=== PATIENT | male | born 1960 | race Two or more races ===

== ENCOUNTER 2024-05-15 12:50 | Inpatient (IN) | payer OTHER ==
[~2024-05-15] VITALS: Ht 165.1 cm; Wt 100.0 kg
[2024-05-15] MEDS ORDERED: METO50 PO (13:01)
[2024-05-15] MEDS ORDERED: ATOR40TA71 PO (13:01)
[2024-05-15] MEDS ORDERED: POTA99TA17 PO (13:01)
[2024-05-15] MEDS ORDERED: ASPI-1450 PO (13:01)
[2024-05-15] MEDS ORDERED: HYDR25TA84 PO (13:01)
[2024-05-15 13:51] LABS: BASOPHILS % (AUTO) 0.4 % (0.0-2.0); EOSINOPHILS % (AUTO) 0.3 % (1.0-6.0); LYMPHOCYTES # (AUTO) 2.5 K/uL (1.0-4.8); LYMPHOCYTES % (AUTO) 25.8 % (22.0-44.0); MEAN CORPUSCULAR HEMOGLOBIN 32.7 pg (26.0-34.0); MEAN CORPUSCULAR HGB CONC 32.8 G/dL (31.0-37.0); MEAN CORPUSCULAR VOLUME 100 fL (80-100); MONOCYTES # (AUTO) 0.7 K/uL (0.1-1.0); MONOCYTES % (AUTO) 6.8 % (2.0-9.0); NEUTROPHILS # (AUTO) 6.6 K/uL (1.8-7.7); NEUTROPHILS % (AUTO) 66.7 % (40.0-70.0); PLATELET COUNT (AUTO) 83 K/uL (150-450); RED BLOOD CELL COUNT(AUTO) 5.91 MIL/uL (4.50-5.90); RED CELL DISTRIBUTION WIDTH 14.5 % (11.5-14.5); WHITE BLOOD COUNT (AUTO) 9.9 K/uL (4.5-11.0)
[2024-05-15 14:05] LABS: CALCIUM, TOTAL 8.5 mg/dL (8.8-10.5); CREATININE 1.67 mg/dL (0.60-1.30); POTASSIUM 4.1 mmol/L (3.5-5.1)
[2024-05-15 14:23] LABS: TROPONIN I-HIGH SENSITIVITY 85 ng/L (<76)
[2024-05-15 14:40] LABS: MAGNESIUM 1.9 mg/dL (1.80-2.40)
[2024-05-15] MEDS: FUROSEMIDE 40 MG/4 ML VIAL IVP ONE (14:43)
[2024-05-15] MEDS: METOPROLOL TARTRATE 50 MG TABLET PO ONE (14:43)
[2024-05-15] MEDS: METOPROLOL TARTRATE 5 MG/5 ML VIAL IVP ONE ×2 (14:43→16:40)
[2024-05-15 14:46] LABS: HEMATOCRIT 58.9 % (41-53); HEMOGLOBIN 19.3 g/dL (13.5-17.5)
[2024-05-15 16:18] LABS: COVID AG,FIA SOURCE NASAL SWAB
[2024-05-15] MEDS: MAGNESIUM SULFATE 1 GM in DEXTROSE 5%-WATER 50 ML IV ONE (16:40)
[2024-05-15 16:50] LABS: INFLUENZA TYPE A NEGATIVE FOR TYPE A (NEGATIVE); INFLUENZA TYPE B NEGATIVE FOR TYPE B (NEGATIVE); SARS-COV2 (COVID) ANTIGEN,FIA Negative (Negative)
[2024-05-15 16:50] LABS: TROPONIN I-HIGH SENSITIVITY 104 ng/L (<76)
[2024-05-15] MEDS ORDERED: MORPHINE SULFATE 2 MG/ML SYRINGE IVP PRN (18:30)
[2024-05-15] MEDS ORDERED: ACETAMINOPHEN 325 MG TABLET PO PRN (18:30)
[2024-05-15] MEDS ORDERED: MAGNESIUM HYDROXIDE SUSPENSION 30 ML UDCUP PO PRN (18:30)
[2024-05-15] MEDS ORDERED: HYDROCODONE/ACETAMINOPHEN 5-325 MG TABLET PO PRN (18:30)
[2024-05-15] MEDS ORDERED: ONDANSETRON HCL 4 MG/2 ML VIAL IVP PRN (18:30)
[2024-05-15] MEDS ORDERED: BISACODYL 10 MG RECTAL RECTAL SUPPOSITORY PR PRN (18:30)
[2024-05-15] MEDS ORDERED: ZOLPIDEM TARTRATE 5 MG TABLET PO PRN (18:30)
[2024-05-15 19:30] LABS: TROPONIN I-HIGH SENSITIVITY 79 ng/L (<76)
[2024-05-15] MEDS: DOCUSATE SODIUM 100 MG CAPSULE PO SCH (21:00)
[2024-05-15] MEDS: FUROSEMIDE 20 MG/2 ML VIAL IVP SCH (21:38)
[2024-05-15] MEDS: METOPROLOL TARTRATE 50 MG TABLET PO SCH (21:38)
[2024-05-16] VITALS: BP 157/101; PULSE 81; RESP 18; TEMP 97.9; O2SAT 95
[2024-05-16] MEDS: HEPARIN SODIUM,PORCINE 5,000 UNITS/ML VIAL SQ SCH
[2024-05-16 04:00] VITALS: BP 147/104; PULSE 84; RESP 17; TEMP 98.1; O2SAT 98
[2024-05-16 06:46] LABS: BASOPHILS % (AUTO) 4.4 % (0.0-2.0); EOSINOPHILS % (AUTO) 0.7 % (1.0-6.0); HEMATOCRIT 54.4 % (41-53); HEMOGLOBIN 18.3 g/dL (13.5-17.5); LYMPHOCYTES # (AUTO) 1.4 K/uL (1.0-4.8); LYMPHOCYTES % (AUTO) 18.6 % (22.0-44.0); MEAN CORPUSCULAR HEMOGLOBIN 33.7 pg (26.0-34.0); MEAN CORPUSCULAR HGB CONC 33.7 G/dL (31.0-37.0); MEAN CORPUSCULAR VOLUME 100 fL (80-100); MONOCYTES # (AUTO) 0.6 K/uL (0.1-1.0); MONOCYTES % (AUTO) 7.7 % (2.0-9.0); NEUTROPHILS # (AUTO) 5.1 K/uL (1.8-7.7); NEUTROPHILS % (AUTO) 68.6 % (40.0-70.0); PLATELET COUNT (AUTO) 68 K/uL (150-450); RED BLOOD CELL COUNT(AUTO) 5.44 MIL/uL (4.50-5.90); RED CELL DISTRIBUTION WIDTH 14.1 % (11.5-14.5); WHITE BLOOD COUNT (AUTO) 7.4 K/uL (4.5-11.0)
[2024-05-16 06:50] LABS: CALCIUM, TOTAL 8.1 mg/dL (8.8-10.5); CREATININE 1.41 mg/dL (0.60-1.30); POTASSIUM 3.5 mmol/L (3.5-5.1)
[2024-05-16] MEDS: ATORVASTATIN CALCIUM 40 MG TABLET PO SCH (08:09)
[2024-05-16] MEDS: PANTOPRAZOLE SODIUM 40 MG DR TABLET PO SCH (08:09)
[2024-05-16] MEDS: ASPIRIN 81 MG CHEWABLE TABLET PO SCH (08:16)
[2024-05-16 12:17] VITALS: BP 139/89; PULSE 86; RESP 18; TEMP 97.9; O2SAT 97
[2024-05-16 15:20] VITALS: BP 150/90; RESP 18; TEMP 98; O2SAT 98
== END 2024-05-16 16:14 | disposition short-term general hospital (02) | DRG 291 ==
LOC: EMS 12:54 → EDH 18:27 → 5N 05-16
PROVIDERS: ADMIT Internal Medicine; ATTEND Internal Medicine
DX: I13.0 Hypertensive heart and chronic kidney disease with heart failure and stage 1 through stage 4 chronic kidney disease, or unspecified chronic kidney disease (principal); I50.33 Acute on chronic diastolic (congestive) heart failure; I24.89 Other forms of acute ischemic heart disease; N17.9 Acute kidney failure, unspecified; K62.5 Hemorrhage of anus and rectum; Z20.822 Contact with and (suspected) exposure to COVID-19; D75.1 Secondary polycythemia; I48.91 Unspecified atrial fibrillation; N18.9 Chronic kidney disease, unspecified; K59.00 Constipation, unspecified; E78.00 Pure hypercholesterolemia, unspecified; Z79.82 Long term (current) use of aspirin; Z79.899 Other long term (current) drug therapy
CPT/HCPCS: 71045; 80048; 83735; 83880; 84484; 85025; 86850; 86900; 86901; 87804; 93005; 93306; 99285; G0378; J1644; J1940; J3475; J3490; J7060; 36415-L1; 36415-TC